=== PATIENT | male | born 1995 | race Caucasian/White ===

== ENCOUNTER 2018-01-10 22:59 | Emergency (ER) | payer BC, OTHER ==
[~2018-01-10] VITALS: Ht 185.4 cm; Wt 82.1 kg
[2018-01-10] MEDS ORDERED: LIDOCAINE 1%-EPI 1:100K, 30ML ONE (23:55)
[2018-01-10] MEDS ORDERED: BACITRACIN ZINC OINT 500U/GM, 0.9 GM ONE (23:55)
[2018-01-11] MEDS ORDERED: LIDOCAINE 1%-EPI 1:100K, 20ML SQ ONE
[2018-01-11 00:31] VITALS: BP 117/62
== END 2018-01-11 00:52 | disposition home or self-care (01) ==
LOC: ED 01-11 00:46
DX: S01.81XA Laceration without foreign body of other part of head, initial encounter (principal); W50.0XXA Accidental hit or strike by another person, initial encounter; Y93.89 Activity, other specified; Y92.89 Other specified places as the place of occurrence of the external cause; Y99.8 Other external cause status
CPT/HCPCS: 12051; 99284; J3490